=== PATIENT | male | born 1970 | race Caucasian/White ===

== ENCOUNTER 2019-08-20 10:14 | Emergency (ER) | payer BC ==
[~2019-08-20] VITALS: Ht 182.9 cm; Wt 86.2 kg
[2019-08-20 10:29] VITALS: BP_SYST 124
[2019-08-20 10:51] VITALS: BP_SYST 124
== END 2019-08-20 12:08 | disposition home or self-care (01) ==
LOC: SED 10:14
DX: R07.9 Chest pain, unspecified (principal)
CPT/HCPCS: 93005; 99283